=== PATIENT | male | born 1970 | race Caucasian/White ===

== ENCOUNTER 2017-03-08 11:31 | Emergency (ER) | payer SELFPAY ==
[~2017-03-08] VITALS: Ht 177.8 cm; Wt 100.0 kg
[~2017-03-08 11:31] MED LIST: CLIN1CAP5 PO; IBUP800T23 PO; PERI0.126 SWISH-SPIT
[2017-03-08 11:32] VITALS: BP 170/99; PULSE 66; RESP 16; TEMP 98.5; O2SAT 99
--- NOTE | 2017-03-08 13:48 | PD ---
HPI Chief Complaint: Back/ Neck Pain or Injury Time Seen by Provider: 13:47 Travel History International Travel<30 days: No Contact w/Intl Traveler<30days: No Traveled to known affect area: No History of Present Illness HPI 46-year-old male presents emergency Department with complaint of right-sided low back pain 1 weeks. Says he has history of chronic low back pain with sciatica. Symptoms are similar but his pain does not radiate at this time and he says his sciatic pain is never lasted a whole week. Denies new or recent injury. Denies encopresis, incontinence, saddle anesthesias. Denies IV drug use or cancer. Denies paresthesias, loss of sensation, decreased range of motion, decreased strength to bilateral lower extremities. Reports being ambulatory with a limp. Denies fever, vomiting, abdominal pain, change in urine or stool. Has been taking ibuprofen and using icy hot for symptom management. Symptoms are moderate in severity. Pain is aggravated with movement, walking, palpation. Has no other medical complaints. Allergies to penicillin. No other modifying factors or associated signs and symptoms. PFSH Past Medical History Diminished Hearing: No Social History Alcohol Use: Yes (social) Tobacco Use: Yes (06/01) Substance Use: No Allergies-Medications (Allergen,Severity, Reaction): Coded Allergies: penicillin G (Verified Allergy, Unknown, UNKNOWN, 03/08/17) Reported Meds & Prescriptions Reported Meds & Active Scripts Active Medrol Dosepak (Methylprednisolone) 4 Mg Dspk 4 Mg PO DIRECTED Per Pharmacist direction Robaxin (Methocarbamol) 500 Mg Tab 500 Mg PO QID PRN Ibuprofen 800 Mg Tab 800 Mg PO Q6HR PRN Clindamycin (Clindamycin HCl) 150 Mg Cap 450 Mg PO Q6H 10 Days Ibuprofen 800 Mg Tab 800 Mg PO Q6HR PRN Peridex Liq (Chlorhexidine Gluconate (Mouth) Liq) 0.12% Soln 15 Ml SWISH-SPIT BID 10 Days Review of Systems Except as stated in HPI: all other systems reviewed are Neg Physical Exam Narrative GENERAL: Well-nourished, well-developed male patient, in no acute distress; afebrile, nontoxic-appearing SKIN: Warm and dry. HEAD: Atraumatic. Normocephalic. EYES: Pupils equal and round. No scleral icterus. No injection or drainage. ENT: Mucosa pink and moist. Airway patent. NECK: Trachea midline. CARDIOVASCULAR: Regular rate. RESPIRATORY: No accessory muscle use. GASTROINTESTINAL: Round. MUSCULOSKELETAL: Bilateral lower extremities supple and non-tense with 2+ pedal pulses and sensory intact; with full range of motion and 5/5 strength. 2 + DTRs bilaterally. Active dorsiflexion and extension of bilateral feet. Right straight leg raise is positive for low back pain. Ambulatory in room with limp to the right lower extremity. Sitting up in bed at 90. No obvious deformities. No clubbing. No cyanosis. No edema. BACK: No midline point tenderness on palpation of the lumbar spine. Tenderness on palpation of right lumbar paraspinal/iliosacral area. No obvious deformities. NEUROLOGICAL: Awake and alert. Oriented 3. No obvious cranial nerve deficits. Motor grossly within normal limits. Normal speech. Moves all extremities. 5/5 strength to all extremities. Sensory intact. PSYCHIATRIC: Appropriate mood and affect; insight and judgment normal. Data Data Last Documented VS Vital Signs Date Time Temp Pulse Resp B/P (MAP) Pulse Ox O2 Delivery O2 Flow Rate FiO2 03/08/17 13:52 03/08/17 11:32 98.5 66 16 99 Orders Orders Ketorolac Inj (Toradol Inj) (03/08/17 14:00) Orphenadrine Inj (Norflex Inj) (03/08/17 14:00) [facility] Medical Decision Making Medical Screen Exam Complete: Yes Emergency Medical Condition: Yes Medical Record Reviewed: Yes Differential Diagnosis Acute low back pain, sciatica, lumbar radiculopathy, low back strain Narrative Course 46-year-old male physical exam and history of present illness consistent with right-sided low back pain with sciatica. History of chronic low back pain and right-sided sciatica. Denies new or recent injury. Patient denies encopresis, incontinence, saddle anesthesias, IV drug use, cancer. Patient is afebrile and nontoxic-appearing. Denies fever, vomiting. No midline tenderness on palpation of the lumbar spine. Patient into the treatment room with a limp to the right lower extremity. Norflex and Toradol administered in the ER. Robaxin , ibuprofen, Medrol Dosepak prescribed for home. Instructed patient to follow up with primary care provider. Patient verbalizes understanding and agreement with treatment plan. Patient is medically cleared and stable for discharge. Discussed reasons to return to the emergency department. Patient agrees with treatment plan. The patients vital signs are stable and the patient is stable for outpatient follow-up and treatment. Patient discharged home, stable and in no acute distress. Diagnosis Primary Impression: Right-sided low back pain with sciatica Qualified Codes: M54.41 - Lumbago with sciatica, right side Referrals: Primary Care Physician Patient Instructions: Acute Low Back Pain (ED), General Instructions, Sciatica (ED) Departure Forms: Tests/Procedures, Work Release Enter return to work date: Mar 11, 2017 Additional Instructions: Tylenol or ibuprofen as directed and as needed for pain Robaxin as prescribed and as needed for muscle spasms Heating pad and/or ice to affected area to reduce pain Avoid aggravating activities; increase activity as tolerated Follow-up with primary care provider Return to emergency department immediately with worsening of symptoms Med/Other Pt SpecificInfo: Prescription(s) given Scripts Methylprednisolone Dosepak (Medrol Dosepak) 4 Mg Dspk 4 MG PO DIRECTED, #1 DSPK 0 Refills Per Pharmacist direction Prov: Colleen Elizabeth 03/08/17 Methocarbamol (Robaxin) 500 Mg Tab 500 MG PO QID Y for MUSCLE SPASM, #30 TAB 0 Refills Prov: Colleen Elizabeth 03/08/17 Ibuprofen (Ibuprofen) 800 Mg Tab 800 MG PO Q6HR Y for PAIN, #30 TAB 0 Refills Prov: Colleen Elizabeth 03/08/17 Disposition: 01 DISCHARGE HOME Condition: Stable Colleen Elizabeth Mar 08, 2017 13:48
[2017-03-08] MEDS ORDERED: IBUP800T23 PO (13:51)
[2017-03-08] MEDS ORDERED: MEDR4PAK PO (13:51)
[2017-03-08] MEDS ORDERED: ROBA500T PO (13:51)
[2017-03-08] MEDS ORDERED: KETOROLAC TROMETHAMINE 60 MG/2 ML (IM) VIAL IM ONE (14:00)
[2017-03-08] MEDS ORDERED: ORPHENADRINE INJ 60 MG/2 ML AMP IM ONE (14:00)
== END 2017-03-08 14:01 | disposition home or self-care (01) ==
LOC: NEPK 11:31
DX: M54.41 Lumbago with sciatica, right side (principal)
CPT/HCPCS: 96372; 99284; J1885; J2360

== ENCOUNTER 2017-09-11 17:52 | Emergency (ER) | payer OTHER ==
[~2017-09-11 17:52] MED LIST changes: +CLIN150C14 PO; -CLIN1CAP5 PO; +IBUP1TAB7 PO; -IBUP800T23 PO; +MEDR4PAK PO; +ROBA500T PO
[2017-09-11 17:57] VITALS: BP 142/76; PULSE 86; RESP 16; TEMP 97.9; O2SAT 98
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
[2017-09-11] MEDS ORDERED: ACETAMINOPHEN/HYDROcodone 325 MG/5 MG TAB PO ONE (19:30)
[2017-09-11] MEDS ORDERED: NORC5TAB PO (19:33)
[2017-09-11] MEDS ORDERED: IBUP1TAB7 PO (19:33)
== END 2017-09-11 19:54 | disposition home or self-care (01) ==
LOC: NEPD 17:52
DX: S82.891A Other fracture of right lower leg, initial encounter for closed fracture (principal); V03.90XA Pedestrian on foot injured in collision with car, pick-up truck or van, unspecified whether traffic or nontraffic accident, initial encounter
CPT/HCPCS: 29515; 73610; 73630; 99283; E0113

== ENCOUNTER → 2017-10-01 | Day surgery (SDC) | payer SELFPAY ==
[~2017-10-01] VITALS: Ht 177.8 cm; Wt 88.1 kg
[~2017-10-01] MED LIST changes: +*HYDROmorphone PF 0.5 MG/0.5 ML PERIprocedure ONLY ONE; +*morphine SULFATE 4 MG/ML PERIprocedure ONLY ONE; +ACETAMINOPHEN 1000 MG/100 ML 100 ML IV ONE; +ACETAMINOPHEN/HYDROcodone 325 MG/5 MG TAB PO PRN; +BUPIVACAINE/EPINEPHRINE 0.5% PF 10 ML VIAL ONE; +CHLORHEXIDINE GLUCONATE 2 % 1 PACK (2 CLOTHS) TOPICAL PRN; -CLIN150C14 PO; +CLINDAMYCIN PHOS 900 MG/6 ML VIAL ONE; +DEXAMETHASONE SOD PHOS 4 MG/ML VIAL IV ONE; +GENTAMICIN SULFATE 80 MG/2 ML VIAL ONE; +GLYCOPYRROLATE 1 MG/5 ML SYRINGE IV PUSH ONE; +HYDR-3516 PO; +LACTATED RINGER'S 1000 ML IV PRN; +LIDOCAINE HCL 1% PF 5 ML SYRINGE OTHER ONE; -MEDR4PAK PO; +METOPROLOL TARTRATE 25 MG TAB PO PRN; +MIDAZOLAM HCL 2 MG/2 ML VIAL ONE; +MORPHINE SULFATE 4 MG/ML INJ IV PUSH PRN; +NEOSTIGMINE 5 MG/5 ML SYRINGE IV PUSH ONE; +ONDANSETRON HCL 4 MG/2 ML VIAL IV ONE; +ONDANSETRON HCL 4 MG/2 ML VIAL IV PUSH PRN; -PERI0.126 SWISH-SPIT; +POVIDONE IODINE 5% (ANTISEPSIS KIT) 4 APPLICATIONS EACH NARE PRN; +PRIL20TA2 PO; +PROPOFOL 200 MG/20 ML AMP IV ONE; -ROBA500T PO; +ROCURONIUM INJ 50 MG/5 ML SYRINGE IV PUSH ONE; +SODIUM CHLORID 0.9% 500 ML IV PRN; +SODIUM CHLORIDE 0.9% FLUSH 10 ML FLUSH IV FLUSH PRN; +SODIUM CHLORIDE 0.9% FLUSH 10 ML FLUSH IV FLUSH SCH; +ZOFR4TAB3 SL; +diphenhydrAMINE HCL 25 MG CAP PO PRN
--- NOTE | 2017-10-01 10:21 | PD.OP ---
cc: Mya Willard MD Operative Report Date of Surgery: October 01, 2017 Preoperative Diagnosis: Closed right displaced medial malleolus fracture Postoperative Diagnosis: Same Procedure: Open reduction internal fixation right medial malleolus fracture Anesthesia: General Surgeon: Mya Willard Slip Tender(s): None Operation and Findings: EBL: 2 cc Complications: None Specimens: None Indications for procedure: Patient is a 47-year-old gentleman who presented to my office approximately 4 weeks after sustaining a right ankle injury. Patient was seen at [facility] on 09/11 and placed into a splint. Patient presented to my office this week with a displaced closed right medial malleolus fracture without a splint. Options of management were discussed with the patient but given the displacement of the medial malleolus, recommendation for open reduction internal fixation of his right medial malleolus. Risks of surgery including but not limited to: Infection, nonunion or malunion, hardware malposition or failure, neurovascular injury, persistent ankle pain and/or stiffness, possible need for further surgery, and other unforeseen complications were all discussed with the patient. At this time he did wish to proceed with the above-mentioned procedure. Description of procedure: Patient was brought back to the operating room and placed supine on operating table with all bony prominences well-padded. General anesthesia then ensued. A tourniquet was placed on the patient's upper thigh. Patient was prepped and draped in standard sterile fashion. A timeout was performed to down for the correct patient, side, site and procedure to be performed. Preoperative antibiotics were given within 1 hour of incision. Fluoroscopy was utilized to identify the fracture site along with the joint line. The leg was exsanguinated and tourniquet inflated 250 mmHg. A small anterior medial incision was made with sharp dissection through the skin and subcutaneous tissue. Careful dissection was carried down to the medial malleolus and the fracture site was identified. The fracture site was found to be gapped approximately 4-5 mm and fibrous tissue was removed with curettes and rongeurs. The fracture fragment was mobilized. The medial aspect of the medial malleolus at the joint surface was identified and reduced under direct visualization. This was verified on fluoroscopy. 2 guidewires for cannulated screws were then placed from distal to proximal in the tip of the medial malleolus and advanced into the tibia. This was performed while the fracture was held reduced. These 2 guidewires were then measured in the near cortex drilled. 2 partially threaded cannulated screws were then placed over the guidewires and advanced under fluoroscopy. As the screws were fully seated, it was noted the fracture site compressed. At this time, the hardware was found to be in appropriate position and out of the joint surface, and the fracture was well reduced. The guidewires were removed. The wound was thoroughly irrigated with normal saline laden with gentamicin. Local anesthetic in the form of half percent Marcaine with epinephrine was used in the subcutaneous tissue and skin. The deep tissue was closed with Vicryl suture and the skin closed with nylon. Sterile dressings along with a splint were applied. Tourniquet was deflated. Patient was then awoken from general anesthesia and [facility] without complication. Disposition: Patient will be nonweightbearing to the right lower extremity in a splint. Mya Willard MD October 01, 2017 10:21
[2017-10-01 11:49] VITALS: BP 121/77; PULSE 61; RESP 16; TEMP 97.4; O2SAT 96
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
== END | disposition home or self-care (01) ==
LOC: HSDC 06:12
PROVIDERS: ATTEND Orthopaedic Surgery Orthopaedic Surgery of the Spine
DX: S82.51XA Displaced fracture of medial malleolus of right tibia, initial encounter for closed fracture (principal); V03.90XA Pedestrian on foot injured in collision with car, pick-up truck or van, unspecified whether traffic or nontraffic accident, initial encounter
CPT/HCPCS: 01480; 27766; 73600; 76000; C1713; J0131; J1170; J1580; J2250; J2270; J3010; J7120; J1100; J2405; J2710